=== PATIENT | female | born 1960 | race Caucasian/White ===

== ENCOUNTER → 2019-07-16 | Outpatient (CLI) | payer MEDICAID ==
[~2019-07-16] MED LIST: GADOBUTROL 10 MMOL/10 ML (GADAVIST) VIAL IV ONE
[2019-07-16 14:50] LABS: CREATININE SERUM 1.04 MG/DL (0.60-1.30)
--- NOTE | 2019-07-16 16:01 | Diagnostic Imaging Report ---
PROCEDURE: MR imaging of the brain with and without contrast. TECHNIQUE: Multiplanar, multisequence MR imaging of the brain was performed with and without contrast. INDICATION: Headaches and dizziness. COMPARISON: None. FINDINGS: No acute ischemia, mass, or hemorrhage. No abnormal enhancement is seen. Scattered chronic microvascular disease is seen in the periventricular and subcortical white matter. The ventricles, cortical sulci, and basilar cisterns are symmetric and unremarkable. The sellar and suprasellar regions have a normal appearance. The major intracranial flow voids are intact. The brainstem and posterior fossa are unremarkable. The paranasal sinuses and mastoid air cells demonstrate normal signal characteristics. The globes and orbits are symmetric and unremarkable. The scalp and calvarium have a normal appearance. IMPRESSION: 1. No acute ischemia, mass, or hemorrhage. No abnormal enhancement. 2. Scattered chronic microvascular disease. Dictated by: Dictated on workstation # [id number]
== END ==
LOC: RAD 14:23
PROVIDERS: ATTEND Psychiatry & Neurology Neurology
DX: G51.39 Clonic hemifacial spasm, unspecified (principal); I67.82 Cerebral ischemia; R42 Dizziness and giddiness; R51 Headache
CPT/HCPCS: 36415; 70553; 82565; 84520